=== PATIENT | female | born 1985 ===

== ENCOUNTER 2021-04-22 10:53 | Emergency (ER) | payer OTHER ==
[2021-04-22 12:53] LABS: CORONAVIRUS COVID-19 NAA NEGATIVE (NEGATIVE); INFLUENZA A NAA POSITIVE (NEGATIVE); INFLUENZA B NAA NEGATIVE (NEGATIVE)
== END 2021-04-22 13:30 | disposition home or self-care (01) ==
LOC: MW.ED 10:53
DX: J10.1 Influenza due to other identified influenza virus with other respiratory manifestations (principal); Z20.822 Contact with and (suspected) exposure to COVID-19
CPT/HCPCS: 0240U; 87651; 99283; 99282

== ENCOUNTER 2022-05-25 15:37 | Emergency (ER) | payer OTHER | END 2022-05-25 22:10 | disposition home or self-care (01) | LOC: MW.ED 15:37 | DX: O02.0 Blighted ovum and nonhydatidiform mole (principal) | CPT/HCPCS: 36415; 76817; 76817-26; 81001; 81025; 84702; 85027; 86900; 86901; 99284 ==